=== PATIENT | female | born 1990 | race Caucasian/White ===

== ENCOUNTER 2017-07-17 19:47 | Emergency (ER) | payer OTHER ==
[2017-07-17 20:47] LABS: BASOPHIL % 1.1 % (0-2); PLATELET COUNT 493 x10^3mcL (130-400); RED CELL DISTRIBUTION WIDTH 17.3 % (11.5-14.5)
[2017-07-17 21:05] LABS: CALCIUM 8.8 mg/dL (8.5-10.1); CARBON DIOXIDE 25.1 mmol/L (21-32); CHLORIDE SERUM 106 mmol/L (98-107); CREATININE SERUM 0.7 mg/dL (0.6-1.0); GFR1 > 60 mL/min; GLUCOSE SERUM 99 mg/dL (74-106); POTASSIUM SERUM 3.6 mmol/L (3.5-5.1); SODIUM SERUM 142 mmol/L (136-145)
[2017-07-17 21:07] LABS: ALBUMIN 3.7 g/dL (3.4-5.0); ALKALINE PHOSPHATASE 111 U/L (46-116); ALT/SGPT 22 U/L (14-59); AMYLASE 47 U/L (25-115); AST/SGOT 16 U/L (15-37); BILIRUBIN TOTAL 0.37 mg/dL (0.20-1.00); HDL CHOLESTEROL 39 mg/dL (40-60); LIPASE 156 IU/L (73-393)
[2017-07-17 21:08] LABS: CHOLESTEROL 115 mg/dL (<200); TOTAL PROTEIN, SERUM 8.5 g/dL (6.4-8.2)
[2017-07-17 21:13] LABS: UA SPECIFIC GRAVITY 1.025 (1.005-1.035); microscopic required? YES; urine erythrocyte 2+ (NEGATIVE)
[2017-07-17 21:21] LABS: AMPHETAMINE QUAL UR NONE DETECTED (NEG <=1000)
[2017-07-17 23:22] VITALS: BP 101/63
== END 2017-07-17 23:22 | disposition home or self-care (01) ==
LOC: ED 19:47
PROVIDERS: Emergency Medicine
DX: R07.89 Other chest pain (principal); D50.9 Iron deficiency anemia, unspecified
CPT/HCPCS: 36415; 83880

== ENCOUNTER 2018-06-12 12:39 | Emergency (ER) | payer OTHER ==
[~2018-06-12] VITALS: Ht 154.9 cm; Wt 96.6 kg
[2018-06-12 12:59] VITALS: Ht 154.9 cm; Wt 96.6 kg
[2018-06-12 14:49] LABS: BASOPHIL % 0.4 % (0-2)
[2018-06-12 15:20] LABS: PLATELET COUNT 409 x10^3mcL (130-400); RED CELL DISTRIBUTION WIDTH 18.5 % (11.5-14.5)
[2018-06-12 17:38] VITALS: BP 122/68
== END 2018-06-12 17:44 | disposition home or self-care (01) ==
LOC: ED 12:39
PROVIDERS: Emergency Medicine
DX: O03.9 Complete or unspecified spontaneous abortion without complication (principal)
CPT/HCPCS: 36415; J2210; J7030; Q0092

== ENCOUNTER 2018-11-29 17:44 | Emergency (ER) | payer OTHER ==
[~2018-11-29] VITALS: Ht 154.9 cm; Wt 93.4 kg
[2018-11-29 18:14] VITALS: Ht 154.9 cm; Wt 93.4 kg
[2018-11-29 21:02] VITALS: BP 114/57
== END 2018-11-29 21:02 | disposition home or self-care (01) ==
LOC: ED 17:44
DX: S92.412A Displaced fracture of proximal phalanx of left great toe, initial encounter for closed fracture (principal); Y93.I9 Activity, other involving external motion; V87.8XXA Person injured in other specified noncollision transport accidents involving motor vehicle (traffic), initial encounter; Y92.413 State road as the place of occurrence of the external cause; Y99.8 Other external cause status
CPT/HCPCS: Q0092

== ENCOUNTER 2019-04-13 18:16 | Emergency (ER) | payer OTHER ==
[~2019-04-13] VITALS: Ht 154.9 cm; Wt 94.3 kg
[2019-04-13 18:25] VITALS: Ht 154.9 cm; Wt 94.3 kg
[2019-04-13 20:12] VITALS: BP 111/80
== END 2019-04-13 20:13 | disposition home or self-care (01) ==
LOC: ED 18:16
DX: A09 Infectious gastroenteritis and colitis, unspecified (principal)